=== PATIENT | female | born 1930 | race Caucasian/White ===

== ENCOUNTER 2016-12-28 07:36 | Inpatient (IN) | payer OTHER ==
[~2016-12-28] VITALS: Ht 167.6 cm; Wt 76.1 kg
[2016-12-28] VITALS (8 sets, daily range): BP systolic 133–157; BP diastolic 66–132
--- NOTE | ~2016-12-28 | HC ---
[facility] [place] [address] [place] [address] CONSULTATION Name: BARRONQUINCY Room #: 311-P ADM IN M.R.#: [id number] Admission: 12/28/16 Attend Phys: Enoc Bashir MD Discharge: Date of : 30 Report #: [id number] THIS REPORT FOR: //name// CC: WILFRIDO physician/PCP Enoc Bashir DATE OF SERVICE: 12/29/2016 HISTORY OF PRESENT ILLNESS: The patient is an 86-year-old female who was brought to the Emergency Room with slurred speech and left-sided weakness. At that time, her blood sugar was 320. Despite this, the patient was still able to interact with her family; however, because of a significant dementia, the patient was not able to provide any history. Initially, the patient was on the floor, but was then transferred to the Intensive Care Unit. The patient is septic, possibly from left lower extremity cellulitis. As stated above, the patient is unable to provide any history. She is very pleasant, but demented. She has no movement in the left arm or leg. Initial imaging studies with CT head demonstrates moderate diffuse atrophy, but no acute intracranial process. CT angiogram demonstrates minor narrowing of the proximal left ICA, the pe[place] of [place] demonstrates no significant stenosis or aneurysm. A CT perfusion study could not be performed due to technical problems. Since admission, there has been no improvement in the left arm and leg weakness. PAST MEDICAL HISTORY: Dementia. PAST SURGICAL HISTORY: Unknown. MEDICATIONS: Potassium, Exelon, trazodone, Depakote, Risperdal. ALLERGIES: None. PHYSICAL EXAMINATION: VITAL SIGNS: Temperature 36.4, pulse rate 79, respiratory rate 24, blood pressure 119/56, bedside pulse oximetry 93% on room air. LABORATORY DATA: White blood cell count 20.6, hemoglobin 12, hematocrit 35, MCV 95.5, platelet count 167,000. INR 1. Urinalysis 1+ protein, trace ketones, 3+ blood, few bacteria. Chemistry: Sodium 144, potassium 3.1, chloride 107, carbon dioxide 29, BUN 25, creatinine 1, glucose 149. Hemoglobin A1c pending. Lactic acid 1.9, calcium 7.6, total bilirubin 0.5, direct bilirubin 0.1, AST 338, ALT 73, alkaline phosphatase 59, total protein 5.6, albumin 2. Triglycerides 200, cholesterol 194, LDL cholesterol 126, HDL cholesterol 28, amylase 68, lipase 60. Procalcitonin 0.85. [address] [address] CONSULTATION Name: KNOX, VIRGINIA Room #: 311-P ADM IN R.#: [id number] Admission: 12/28/16 Attend Phys: Enoc Bashir MD Discharge: Date of : 30 Report #: [id number] NEUROLOGIC: The patient is not oriented to place or time. Motor exam demonstrates a dense left hemiparesis. Reflexes are symmetrical throughout. The plantar responses are mute bilaterally. There is no evidence of dysmetria in the right upper extremity. Gait cannot be tested. IMPRESSION: This patient appears to have had a stroke. She is scheduled for an MRI head hopefully she will be able to lie still for this. The patient has dementia and is on Exelon, we will need to find out the dose of the Exelon patch and get the patient back on this medication as soon as possible, so she does not have further cognitive decline. Once the stroke is confirmed, the patient will need to be in antiplatelet therapy. She will also need physical therapy, occupational therapy and speech therapy. She will either need a carotid ultrasound or MR angiography of the head and neck. We will also order a B12 and TSH to make sure these have been done to complete the dementia workup. I thank you for your kind referral of the patient and will continue to follow her with you. <ELECTRONICALLY SIGNED> By: Brie Junior DO 12/30/16 1556 1116 2201 Brie Junior DO /nt
--- NOTE | ~2016-12-28 | HC ---
[facility] [place] [address] [place] [address] CONSULTATION Name: BARRONQUINCY Room #: 311-P [facility] IN M.R.#: [id number] Admission: 12/28/16 Attend Phys: Enoc Bashir MD Discharge: 01/05/17 Date of : 30 Report #: [id number] THIS REPORT FOR: //name// CC: WILFRIDO physician/PCP Enoc Bashir DATE OF SERVICE: 12/30/2016 HISTORY OF PRESENT ILLNESS: The patient is an 86-year-old white female with severe dementia who lives in the Memory Care Alzheimer's Unit at [facility]. She was admitted with slurred speech, left-sided weakness, blood sugar 320. She was noted to have sepsis, question left leg cellulitis. With the significant left arm and leg weakness, neurology saw her. MRI was negative and there was a question of either a clinical CVA without radiographic findings versus possible brachial plexopathy as the left upper extremity weakness appears to be greater than the left lower extremity. Neurology indicated that she could be a candidate for an EMG in 3 weeks to rule out a brachial plexopathy. We are seeing her in rehabilitation medicine consultation. PAST MEDICAL HISTORY: Includes dementia, which is severe and hypertension. MEDICATIONS: Please see the full medication listing. SOCIAL HISTORY: As noted above. REVIEW OF SYSTEMS: Unobtainable. PHYSICAL EXAMINATION: GENERAL: An 86-year-old white female in no obvious distress. She is alert, pleasant, poor historian, could not tell me the place nor the year. VITAL SIGNS: Last recorded temperature 98.5, pulse 97, respirations 16, blood pressure 175/84. EXTREMITIES: She has dense left upper extremity plegia without volitional movement. Left lower extremity, she was able to wiggle her toes and appeared to have a little more movement proximally although it is difficult to get her to follow commands. She has functional range of motion and strength of the right upper and right lower extremity probably at a grade 4- to 3+/5. DTRs appeared decreased in the left. Functionally, she has been max assist with basic transfers. ASSESSMENT: An 86-year-old white female with the following problem list: 1. Left-sided weakness, upper extremity greater than lower extremity, clinical CVA versus brachial plexopathy per neurology. 2. Sepsis, possibly from left leg cellulitis. 3. Lactic acidosis, which improved. 4. Hypertension. [facility] [address] [place] [address] CONSULTATION Name: LAKELAND, VIRGINIA Room #: 311-P [facility] IN M.R.#: [id number] Admission: 12/28/16 Attend Phys: Enoc Bashir MD Discharge: 01/05/17 Date of : 30 Report #: [id number] 5. Premorbid severe dementia. PLAN: The patient unfortunately does not meet criteria for an acute in-hospital inpatient rehabilitation stay. With her severe Alzheimer's and living at the memory care unit at [facility], would consider a correction facility stay at [facility] or a similar setting per case management. Thank you for asking us to assist in this patient's care. <ELECTRONICALLY SIGNED> By: Deep Morgan MD 01/06/17 1518 1623 2224 Deep Morgan MD /nt
--- NOTE | ~2016-12-28 | S ---
[facility] [address] [place] [address] SURGICAL PATH RPT PROCEDURE Name: QUINCY MART Room #: 311-P ADM IN M.R.#: [id number] Admission: 12/28/16 Date of : 30 Discharge: Report #: [id number] Path Case #: [id number] PATHOLOGY REPORT COLLECTION DATE: 12/29/2016 RECEIVED DATE: 12/29/2016 SUBMITTING PHYS: Dr. Enoc Bashir OTHER PHYS: SPECIMEN(S) RECEIVED: A.Peripheral smear * * * * * * * * * * * * FINAL DIAGNOSIS: Peripheral blood smear: - Mild leukocytosis/neutrophilia. (see comment) COMMENT: Overall, the peripheral blood has mild leukocytosis/neutrophilia. The hemoglobin and platelet counts are within the normal reference ranges. The etiology of the findings is unclear based entirely on slide review. Potential causes of leukocytosis and neutrophilia include infections, drug reactions, smoking, and primary bone marrow disorders. Correlation with clinical history and additional laboratory data is recommended. (CLW:; d/t: 12/29/16) PATHOLOGIST: Erin Moon M.D. REPORT ELECTRONICALLY SIGNED BY: Erin Moon M.D. DATE/TIME: 12/29/2016 23:17 * * * * * * * * * * * * MICROSCOPIC DESCRIPTION: CBC Data (12/29/16): WBC 20,600 /uL, RBC 3.66, hemoglobin 12.0 g/dL, hematocrit 35.0%, MCV 95.5 fL, MCH 32.7 pg, MCHC 34.2 g/dL, RDW 15.3%. Platelet count 167,000 /uL. Manual white blood cell differential: segs 78%, bands 1%, lymphs 12%, monos 8%, and eos 1%. Peripheral Blood Smear: Cytomorphological examination of the Prince's stained peripheral blood smear confirms the provided data. Red blood cells are normocytic and are without significant anisopoikilocytosis. White blood cells are mildly increased in number. They are predominantly segmented neutrophils and are without significant dyspoiesis or significant left shift. Lymphocytes are predominantly small, round, and mature appearing with condensed chromatin and scant cytoplasm with admixed large granular lymphocytes. Monocytes are mature. Platelets are adequate in number and mainly normal in morphology with [facility] [address] [place] [address] SURGICAL PATH RPT PROCEDURE Name: MCHENRY, VIRGINIA Room #: [facility]-P ADM IN M.R.#: [id number] Admission: 12/28/16 Date of : 30 Discharge: Report #: [id number] Path Case #: [id number] rare larger platelets noted. CLINICAL HISTORY: 86 year-old woman with leukocytosis. Morphologic review of the peripheral blood smear is requested by the patient's physician. INITIAL CPT CODE(S): A; [place] Professional services performed by [facility] at [facility] [address] [place] [address] Technical services performed by [facility] at [address] [place] [address], [address], [place] [address]. [facility] [address] [place] [address] PHONE: [phone] DIRECTOR: Ilya Granados M.D. * * * END OF REPORT * * *
--- NOTE | ~2016-12-28 | 2DMMODE ---
[facility] [address] [place] [address] 2 D/M-MODE ECHOCARDIOGRAM Name: QUINCY MART Room #: 244-P ADM IN M.R.#: [id number] Admission: 12/28/16 Attend Phys: Enoc Bashir, Discharge: Date of : 30 Date of Service: 12/29/16 1113 Report #: [id number] THIS REPORT FOR: //name// APPROVED REPORT Study performed: 12/29/2016 08:36:24 EXAM: Comprehensive 2D, Doppler, and color-flow Echocardiogram Patient Location: Bedside Room #: 244 Status: routine Other Information Study Quality: Adequate Indications CVA/TIA Hx: dementia, HTN, HLP Echo Enhancing Agent Indication: Rule out Shunt Agent(s) / Amount(s) Used: Agitated Saline 6 cc 2D Dimensions RVDd: 37.10 mm LVEF(%): 58.85 (>50%) IVSd: 9.97 (7-11mm) LVOT Diam: 18.66 (18-24mm) LVDd: 42.37 mm PWd: 8.73 (7-11mm) Ascending Ao: 30.90 (22-36mm) LVDs: 29.29 (25-40mm) Aortic Root: 28.84 mm Nazario's LVEF: 58.85 % Volumes Left Atrial Volume (Systole) Single Plane 4CH: 34.27 mL Single Plane 2CH: 29.13 mL LA ESV Index: 19.00 mL/m2 Aortic Valve AoV Peak Matty.: 1.53 m/s AO Peak Gr.: 9.31 mmHg LVOT Max P.62 mmHg LVOT Max V: 0.95 m/s THELMA Vmax: 1.71 cm2 Mitral Valve E/A Ratio: 0.8 [facility] [place] [address] 2 D/M-MODE ECHOCARDIOGRAM Name: OGDENSBURG, VIRGINIA Room #: 244-P ADM IN M.R.#: [id number] Admission: 12/28/16 Attend Phys: Enoc Bashir, Discharge: Date of : 30 Date of Service: 12/29/16 1113 Report #: [id number] MV Decel. Time: 221.69 ms MV E Max Matty.: 0.97 m/s MV A Matty.: 1.25 m/s MV PHT: 64.29 ms IVRT: 72.66 ms Pulmonary Valve PV Peak Matty.: 1.14 m/s PV Peak Gr.: 5.23 mmHg Pulmonary Vein P Vein S: 0.41 m/s P Vein A: 0.39 m/s P Vein D: 0.63 m/s P Vein A Dur.: 124.6 msec P Vein S/D Ratio: 0.65 Tricuspid Valve TR Peak Matty.: 2.61 m/s RAP Estimate: 5.00 mmHg TR Peak Gr.: 27.22 mmHg PA Pressure: 32.00 mmHg Left Ventricle The left ventricle is normal size. There is normal LV segmental wall motion. There is normal left ventricular wall thickness. Left ventricular systolic function is normal. LVEF is 55-60%. Grade I - abnormal relaxation pattern. Right Ventricle The right ventricle is normal size. The right ventricular systolic function is normal. Atria The left atrium size is normal. Injection of bubbles documented no interatrial shunt. The right atrium size is normal. Aortic Valve Aortic valve is mildly calcified. No aortic regurgitation is present. There is no aortic valvular stenosis. Mitral Valve Mitral valve leaflets are mildly calcified. Mild mitral regurgitation. No evidence of mitral valve stenosis. Tricuspid Valve The tricuspid valve is normal in structure. There is mild tricuspid regurgitation. The right atrial pressure is estimated at 5 mmHg. There is mild pulmonary hypertension with an estimated PAP of 32mmHg. [facility] [address] [place] [address] 2 D/M-MODE ECHOCARDIOGRAM Name: OGDENSBURG, VIRGINIA Room #: 244-P [facility] IN M.R.#: [id number] Admission: 12/28/16 Attend Phys: Enoc Bashir, Discharge: Date of : 30 Date of Service: 12/29/16 1113 Report #: [id number] Pulmonic Valve Pulmonic valve is not well visualized. Trace pulmonic regurgitation. Great Vessels The aortic root is normal in size. The ascending aorta is normal in size. IVC is normal in size and collapses >50% with inspiration. Pericardium There is no pericardial effusion. <Conclusion> The left ventricle is normal size. Left ventricular systolic function is normal. Grade I - abnormal relaxation pattern. The right ventricle is normal size. The left atrium size is normal. Aortic valve is mildly calcified. There is no aortic valvular stenosis. Mitral valve leaflets are mildly calcified. Mild mitral regurgitation. There is mild tricuspid regurgitation. The right atrial pressure is estimated at 5 mmHg. There is mild pulmonary hypertension with an estimated PAP of 32mmHg. <ELECTRONICALLY SIGNED> By: Korey Leahy MD 12/29/16 1113 1113 1113 Korey Leahy MD /INF
--- NOTE | ~2016-12-28 | HC ---
[facility] [place] [place] [address] CONSULTATION Name: QUINCY MART Room #: 311-P ADM IN M.R.#: [id number] Admission: 12/28/16 Attend Phys: Enoc Bashir MD Discharge: Date of : 30 Report #: [id number] THIS REPORT FOR: //name// CC: WILFRIDO physician/PCP Enoc Bashir INFECTIOUS DISEASE CONSULTATION REASON FOR CONSULTATION: I was asked to evaluate the patient concerning leukocytosis in the setting of stroke. HISTORY OF PRESENT ILLNESS: The patient is an 86-year-old with underlying dementia and hypertension, who presents from the [facility] with left-sided weakness and slurred speech. No fever, chills or sweats. Hemodynamically, has been stable. She does not complain of anything other than left neck and shoulder discomfort. Duration of this is not clear. Trauma is felt less likely by her history. CT scan of the head and neck were unremarkable, other than atrophy. MRI scan is pending. She spent a night in the intensive care unit and hemodynamically has been stable. Oxygen saturation on room air was adequate. There has been no cough or sputum production. There is no nausea, vomiting or diarrhea. Her urinalysis was unremarkable. The patient has had no diarrhea. Her initial white count was 24,000. She continues to have left-sided weakness, greatest in the arm. ALLERGIES: None. MEDICATIONS: As noted on the MAR. Now on vancomycin and Zosyn. Other medications as noted on her MAR, on no corticosteroids. Past medical history, family history and social history not known, other than her hypertension. REVIEW OF SYSTEMS: The patient unable to give any details. PHYSICAL EXAMINATION: VITAL SIGNS: Afebrile and hemodynamically stable. GENERAL: She was alert and cooperative and pleasant, in no acute distress. She was disoriented. SKIN: Erythema and edema involving the left trapezius and shoulder region. She had pain on palpation to this region. No fluctuance. No axillary adenopathy. She had reasonable range of motion in her shoulder. MOUTH: Dry. NECK: Supple. No parotid tenderness. LUNGS: Clear. HEART: Regular, without murmur. ABDOMEN: Soft. Mild tenderness in the left lower quadrant. No guarding or [facility] [address] [place] [address] CONSULTATION Name: GERING, VIRGINIA Room #: [facility]- ADM IN M.R.#: [id number] Admission: 12/28/16 Attend Phys: Enoc Bashir MD Discharge: Date of : 30 Report #: [id number]. EXTREMITIES: Unremarkable. NEUROLOGICAL EXAMINATION: Weakness to the left arm. Mild left-sided facial weakness. Indwelling Daigle catheter. LABORATORY DATA: Sodium 144, potassium 3.1, bicarbonate 29 and creatinine 1. Troponin 0.09. Procalcitonin 0.8. Sedimentation rate 10. Hemoglobin 12, WBC 20.6 with 78% segs, 1% band and platelet count 167,000. Lactate 1.9. CT of the head, atrophy. Chest x-ray, basilar atelectasis. CT of the neck unremarkable. Blood cultures are pending. Urinalysis unremarkable. IMPRESSION AND PLAN: An 86-year-old with stroke, left-sided hemiparesis and left upper arm and shoulder area erythema and tenderness. Persistent leukocytosis. Sources to consider would include left upper chest soft tissue infection, endocarditis with embolic stroke versus intra-abdominal infection. Other consideration would be vasculitis or hematologic malignancy. Recommend checking liver function tests, CT scan of the abdomen and pelvis. Continue her antibiotics while awaiting blood cultures, await echocardiogram and check peripheral blood smear. <ELECTRONICALLY SIGNED> By: Yvan Grewal MD 12/30/16 1558 0909 1455 Yvan Grewal MD /nt
--- NOTE | ~2016-12-28 | EKG ---
[address] [address] ELECTROCARDIOGRAM REPORT Name: QUINCY MART Room #: 244-P ADM IN M.R.#: [id number] Admission: 12/28/16 Attend Phys: Enoc Bashir MD Discharge: Date of : 30 Report #: [id number] THIS REPORT FOR: //name// [facility] ED Test Date: 2016-12-28 Test Time: 07:32:42 Pat Name: QUINCY MART Department: Room: [facility] Gender: F Care Analyst: Ange Mina : 1930 Requested By: Eliud Mcdonald Order Number: [id number] MD: Ashwin Becker Measurements Intervals [place] Rate: 91 P: 68 NJ: 220 QRS: 69 QRSD: 158 T: -51 QT: 423 QTc: 521 Interpretive Statements Sinus rhythm Prolonged [place] interval Right bundle branch block No previous ECG available for comparison Electronically Signed On 12-28-2016 20:24:06 CDT by Ashwin Becker [email or web address] <ELECTRONICALLY SIGNED> By: Ashwin Becker MD 12/28/162023 1 1 Ashwin Becker MD /JIM
[2016-12-28 08:19] LABS: HEMATOCRIT 39.2 % (37.0-47.0); HEMOGLOBIN 13.4 gm/dL (12.0-15.0); MANUAL DIFF YES; MCH 32.2 pg (26.0-34.0); MCHC 34.3 g/dL (28.0-37.0); MCV 93.9 fL (80.0-100.0); PLATELET COUNT 194 thou/uL (150-400); RBC 4.17 mil/uL (4.20-5.00); RDW 14.6 % (10.5-14.5); WBC 24.5 thou/uL (4.0-11.0)
[2016-12-28 08:30] LABS: URINE BILIRUBIN NEGATIVE (Negative); URINE BLOOD 3+ (Negative); URINE COLOR YELLOW; URINE GLUCOSE-RANDOM* TRACE (Negative); URINE KETONES TRACE (Negative); URINE NITRITE NEGATIVE (Negative); URINE PROTEIN (DIPSTICK) 1+ (Negative); URINE UROBILINOGEN 0.2 E.U./dl (0.2-1.0)
[2016-12-28 08:37] LABS: APTT 24.7 Seconds (24.5-32.8); INR 1.1
[2016-12-28 08:38] LABS: CREATININE 1.7 mg/dL (0.6-1.0); TROPONIN-I 0.08 ng/mL (<0.04-0.07)
[2016-12-28 08:40] LABS: POTASSIUM 2.8 mmol/L (3.5-5.1)
[2016-12-28 09:20] LABS: ABSOLUTE NEUTROPHILS 20.3 thou/uL (1.4-8.2); TOTAL CELL COUNT 100
[2016-12-28 09:21] LABS: ANISOCYTOSIS SLIGHT
[2016-12-28 09:42] LABS: CASTS None Seen /LPF (None Seen); CRYSTALS None Seen /LPF (None Seen); SQUAMOUS 0-3 Few /LPF (0-3)
[2016-12-28 09:43] LABS: URINE WBC 0-5 Rare /HPF (0-5)
[2016-12-28 09:44] LABS: BACTERIA 1-9 Few /HPF (None Seen); URINE RBC 0-2 Rare /HPF (0-2)
[2016-12-28] MEDS ORDERED: POTASSIUM20 PO (10:41)
[2016-12-28] MEDS ORDERED: KLOR-CON 1010 MEQ PO (10:41)
[2016-12-28] MEDS ORDERED: TRAZODONE HCL50 MG PO ×2 (10:42→10:47)
[2016-12-28] MEDS ORDERED: EXELON1 EAC1 TD (10:42)
[2016-12-28] MEDS ORDERED: RISPERDAL0.5 MG PO (10:44)
[2016-12-28] MEDS ORDERED: DEPAKOTE 250MG250 M1 PO (10:44)
[2016-12-28] MEDS ORDERED: BISACODYL SUPP10 MG RECTAL (10:45)
[2016-12-28] MEDS ORDERED: DULCOLAX5 MG PO (10:45)
[2016-12-28] MEDS ORDERED: OLANZAPINE ODT5 MG DISSOLVE (10:46)
[2016-12-28] MEDS ORDERED: ATIVAN0.5 MG PO (10:46)
[2016-12-28] MEDS ORDERED: LEVOTHYROXIN0.125 M1 PO (10:48)
[2016-12-28] MEDS ORDERED: LASIX 20 MG TAB20 MG PO (10:48)
[2016-12-28] MEDS ORDERED: NORVASC2.5 MG PO (10:48)
[2016-12-28] MEDS ORDERED: HYDROCHLOROTHIA25 M2 PO (10:48)
[2016-12-28] MEDS ORDERED: OMEPRAZOLE40 MG PO (10:49)
[2016-12-28] MEDS ORDERED: TOPROL XL100 MG PO (10:49)
[2016-12-28 13:11] LABS: ALBUMIN 2.4 g/dL (3.4-5.0); TOTAL BILIRUBIN 0.3 mg/dL (<0.1-1.0); TOTAL PROTEIN 6.3 g/dL (6.4-8.2)
[2016-12-28 17:25] LABS: ABG SAMPLE TYPE ARTERIAL; BE(vivo) 2.9 mmol/L (-2 to +3); HCO3 24.5 mmol/L (22.0-26.0); LACTATE 5.28 mmol/L (0.5-2.0); O2(CT) 19.7 mL/dL (15.0-23.0); O2Hb 91.7 % (92.0-98.0); PCO2 29.4 mmHg (35.0-45.0); STICK SITE R.RADIAL; pH 7.538 (7.360-7.450); sO2 95.1 % (92.0-98.0); tCO2 25.4 mmol/L (24.0-30.0)
[2016-12-28 20:14] LABS: ABG SAMPLE TYPE VENOUS; BE(vivo) 5.4 mmol/L (-2 to +3); HCO3 29.2 mmol/L (22.0-26.0); LACTATE 4.41 mmol/L (0.5-2.0); PCO2 VENOUS 39.6 mmHg (41.0-51.0); PO2 VENOUS 33.4 mmHg (35.0-45.0); STICK SITE LINE; sO2 VENOUS 69.1 % (65.0-85.0); tCO2 30.4 mmol/L (24.0-30.0)
[2016-12-28 20:17] LABS: HEMATOCRIT 40.1 % (37.0-47.0); HEMOGLOBIN 13.7 gm/dL (12.0-15.0); MCH 32.2 pg (26.0-34.0); MCHC 34.1 g/dL (28.0-37.0); MCV 94.4 fL (80.0-100.0); PLATELET COUNT 190 thou/uL (150-400); RBC 4.24 mil/uL (4.20-5.00); RDW 15.3 % (10.5-14.5); WBC 21.4 thou/uL (4.0-11.0)
[2016-12-28 20:19] LABS: MANUAL DIFF YES
[2016-12-28 20:35] LABS: ALBUMIN 2.2 g/dL (3.4-5.0); APTT 25.6 Seconds (24.5-32.8); CALCIUM 7.9 mg/dL (8.5-10.1); CREATININE 1.3 mg/dL (0.6-1.0); FIBRINOGEN 354.8 mg/dL (210-360); PROTIME 10.7 Seconds (9.3-11.4); TOTAL BILIRUBIN 0.6 mg/dL (<0.1-1.0); TOTAL PROTEIN 6.1 g/dL (6.4-8.2); TROPONIN-I 0.11 ng/mL (<0.04-0.07)
[2016-12-28 20:45] LABS: POTASSIUM 2.8 mmol/L (3.5-5.1)
[2016-12-28 21:37] LABS: ABG SAMPLE TYPE VENOUS; BE(vivo) 5.8 mmol/L (-2 to +3); HCO3 30.2 mmol/L (22.0-26.0); LACTATE 3.47 mmol/L (0.5-2.0); O2(CT) 12.2 mL/dL (15.0-23.0); PCO2 VENOUS 43.2 mmHg (41.0-51.0); PO2 VENOUS 32.7 mmHg (35.0-45.0); sO2 VENOUS 66.2 % (65.0-85.0); tCO2 31.6 mmol/L (24.0-30.0)
[2016-12-28 21:38] LABS: ABG COMMENT NO COMPLICATIONS.; STICK SITE PICC
[2016-12-28 21:53] LABS: ANISOCYTOSIS SLIGHT; TOTAL CELL COUNT 100
[2016-12-28 23:06] LABS: ABG SAMPLE TYPE VENOUS; HCO3 24.2 mmol/L (22.0-26.0); LACTATE 2.53 mmol/L (0.5-2.0); O2(CT) 11.6 mL/dL (15.0-23.0); O2Hb VENOUS 70.1 (65.0-85.0); PCO2 VENOUS 33.9 mmHg (41.0-51.0); PO2 VENOUS 38.2 mmHg (35.0-45.0); STICK SITE LINE; sO2 VENOUS 76.7 % (65.0-85.0); tCO2 25.3 mmol/L (24.0-30.0)
[2016-12-29] VITALS (10 sets, daily range): BP systolic 98–152; BP diastolic 54–81
[2016-12-29 00:18] LABS: BE(vivo) 5.9 mmol/L (-2 to +3); HCO3 29.7 mmol/L (22.0-26.0); O2(CT) 13.1 mL/dL (15.0-23.0); O2Hb VENOUS 73.5 (65.0-85.0); PCO2 VENOUS 40.1 mmHg (41.0-51.0); PO2 VENOUS 38.8 mmHg (35.0-45.0); sO2 VENOUS 77.6 % (65.0-85.0); tCO2 30.9 mmol/L (24.0-30.0)
[2016-12-29 00:19] LABS: ABG SAMPLE TYPE VENOUS; LACTATE 3.91 mmol/L (0.5-2.0); STICK SITE LINE
[2016-12-29 00:31] LABS: CALCIUM 7.6 mg/dL (8.5-10.1); CREATININE 1.3 mg/dL (0.6-1.0); POTASSIUM 3.4 mmol/L (3.5-5.1); TROPONIN-I 0.09 ng/mL (<0.04-0.07)
[2016-12-29 02:12] LABS: BE(vivo) -1.3 mmol/L (-2 to +3); HCO3 21.8 mmol/L (22.0-26.0); LACTATE 2.88 mmol/L (0.5-2.0); O2(CT) 11.3 mL/dL (15.0-23.0); O2Hb VENOUS 70.1 (65.0-85.0); PCO2 VENOUS 31.5 mmHg (41.0-51.0); PO2 VENOUS 38.8 mmHg (35.0-45.0); sO2 VENOUS 77.1 % (65.0-85.0); tCO2 22.8 mmol/L (24.0-30.0)
[2016-12-29 02:13] LABS: ABG SAMPLE TYPE VENOUS; STICK SITE LINE
[2016-12-29 03:44] LABS: BE(vivo) 1.9 mmol/L (-2 to +3); HCO3 25.1 mmol/L (22.0-26.0); O2(CT) 12.9 mL/dL (15.0-23.0); O2Hb VENOUS 70.4 (65.0-85.0); PCO2 VENOUS 34.8 mmHg (41.0-51.0); PO2 VENOUS 38.7 mmHg (35.0-45.0); sO2 VENOUS 77.5 % (65.0-85.0); tCO2 26.2 mmol/L (24.0-30.0)
[2016-12-29 03:45] LABS: ABG SAMPLE TYPE VENOUS; STICK SITE LINE
[2016-12-29 06:48] LABS: ANION GAP 8 mmol/L (7-16); BUN 25 mg/dL (7-18); CALCIUM 7.6 mg/dL (8.5-10.1); CHLORIDE 107 mmol/L (98-107); CHOLESTEROL 194 mg/dL (<200); CO2 29 mmol/L (21-32); GLUCOSE 175 mg/dL (74-106); HDL CHOLESTEROL 28 mg/dL (>40); LDL CHOLESTEROL 126 mg/dL (<100); POTASSIUM 3.1 mmol/L (3.5-5.1); SODIUM 144 mmol/L (136-145); TC:HDL 6.9 Ratio (Not establshd); TRIGLYCERIDE 200 mg/dL (<150); TROPONIN-I 0.08 ng/mL (<0.04-0.07); VLDL 40 mg/dL (<40)
[2016-12-29 07:19] LABS: MCH 32.7 pg (26.0-34.0); MCHC 34.2 g/dL (28.0-37.0); MCV 95.5 fL (80.0-100.0); PLATELET COUNT 167 thou/uL (150-400); RBC 3.66 mil/uL (4.20-5.00); RDW 15.3 % (10.5-14.5); WBC 20.6 thou/uL (4.0-11.0)
[2016-12-29 07:20] LABS: MANUAL DIFF YES
[2016-12-29 08:42] LABS: ABSOLUTE NEUTROPHILS 16.3 thou/uL (1.4-8.2); PLATELET ESTIMATE NORMAL; TOTAL CELL COUNT 100
[2016-12-29 09:48] LABS: DIRECT BILIRUBIN 0.1 mg/dL (<0.1-0.3); TOTAL BILIRUBIN 0.5 mg/dL (<0.1-1.0); TOTAL PROTEIN 5.6 g/dL (6.4-8.2)
[2016-12-29 12:41] LABS: TSH 9.654 uIU/mL (0.358-3.740)
[2016-12-30 05:00] VITALS: BP 174/84
[2016-12-30 05:10] LABS: GLYCOHEMOGLOBIN (HGB A1C) 7.2 % (4.8-5.6)
[2016-12-30 06:46] LABS: ABSOLUTE NEUTROPHILS 14.2 thou/uL (1.4-8.2); BASOPHILS 0.5 % (0.0-2.0); EOSINOPHILS 0.7 % (0.0-3.0); HEMATOCRIT 31.7 % (37.0-47.0); HEMOGLOBIN 10.8 gm/dL (12.0-15.0); LYMPHOCYTES 10.2 % (24.0-44.0); MCH 32.7 pg (26.0-34.0); MCHC 34.1 g/dL (28.0-37.0); MCV 95.8 fL (80.0-100.0); MONOCYTES 9.2 % (1.0-8.0); PLATELET COUNT 173 thou/uL (150-400); POLYS 79.4 % (36.0-66.0); RBC 3.31 mil/uL (4.20-5.00); RDW 15.8 % (10.5-14.5); WBC 17.9 thou/uL (4.0-11.0)
[2016-12-30 06:47] LABS: MANUAL DIFF NO
[2016-12-30 07:16] VITALS: BP 153/73
[2016-12-30 15:56] VITALS: BP 175/84
[2016-12-30 19:51] VITALS: BP 168/80
[2016-12-31 01:19] LABS: HEMATOCRIT 30.3 % (37.0-47.0); HEMOGLOBIN 10.5 gm/dL (12.0-15.0); MCH 32.8 pg (26.0-34.0); MCHC 34.8 g/dL (28.0-37.0); MCV 94.2 fL (80.0-100.0); RBC 3.21 mil/uL (4.20-5.00); RDW 15.4 % (10.5-14.5); WBC 18.3 thou/uL (4.0-11.0)
[2016-12-31 01:30] LABS: CALCIUM 7.8 mg/dL (8.5-10.1); CREATININE 0.9 mg/dL (0.6-1.0)
[2016-12-31 01:36] LABS: POTASSIUM 3.8 mmol/L (3.5-5.1)
[2016-12-31 04:22] VITALS: BP 153/76
[2016-12-31 07:45] VITALS: BP 149/64
[2016-12-31 16:42] VITALS: BP 161/71
[2016-12-31 19:53] VITALS: BP 163/74
[2017-01-01 03:53] VITALS: BP 167/85
[2017-01-01 05:59] LABS: HEMATOCRIT 30.5 % (37.0-47.0); HEMOGLOBIN 10.5 gm/dL (12.0-15.0); MCH 32.6 pg (26.0-34.0); MCHC 34.4 g/dL (28.0-37.0); MCV 94.6 fL (80.0-100.0); RBC 3.22 mil/uL (4.20-5.00); RDW 15.1 % (10.5-14.5)
[2017-01-01 06:22] LABS: CALCIUM 7.9 mg/dL (8.5-10.1); CREATININE 0.8 mg/dL (0.6-1.0); POTASSIUM 3.2 mmol/L (3.5-5.1)
[2017-01-01 06:57] VITALS: BP 157/60
[2017-01-01 16:22] VITALS: BP 177/69
[2017-01-01 16:30] VITALS: BP 157/66
[2017-01-01 20:30] VITALS: BP 173/87
[2017-01-01 22:40] VITALS: BP 135/76
[2017-01-02 04:00] VITALS: BP 165/77
[2017-01-02 04:35] LABS: HEMATOCRIT 32.8 % (37.0-47.0); HEMOGLOBIN 11.2 gm/dL (12.0-15.0); MCH 32.7 pg (26.0-34.0); MCHC 34.3 g/dL (28.0-37.0); MCV 95.6 fL (80.0-100.0); RBC 3.43 mil/uL (4.20-5.00); RDW 15.3 % (10.5-14.5); WBC 18.7 thou/uL (4.0-11.0)
[2017-01-02 05:01] LABS: CALCIUM 8.3 mg/dL (8.5-10.1); CREATININE 0.8 mg/dL (0.6-1.0); POTASSIUM 3.6 mmol/L (3.5-5.1)
[2017-01-02 07:20] VITALS: BP 166/85
[2017-01-02 15:50] VITALS: BP 137/71
[2017-01-02 19:19] VITALS: BP 153/82
[2017-01-03 04:29] VITALS: BP 175/62
[2017-01-03 05:39] LABS: HEMOGLOBIN 10.9 gm/dL (12.0-15.0); MCH 32.8 pg (26.0-34.0); MCV 96.3 fL (80.0-100.0); RBC 3.33 mil/uL (4.20-5.00); RDW 15.6 % (10.5-14.5); WBC 20.8 thou/uL (4.0-11.0)
[2017-01-03 05:55] LABS: CALCIUM 8.3 mg/dL (8.5-10.1); CREATININE 0.8 mg/dL (0.6-1.0); POTASSIUM 3.2 mmol/L (3.5-5.1)
[2017-01-03 07:18] VITALS: BP 187/97
[2017-01-03 15:58] VITALS: BP 153/74
[2017-01-03 20:00] VITALS: BP 189/76
[2017-01-04 04:00] VITALS: BP 178/72
[2017-01-04 06:26] LABS: HEMATOCRIT 32.3 % (37.0-47.0); HEMOGLOBIN 11.2 gm/dL (12.0-15.0); MCH 33.2 pg (26.0-34.0); MCHC 34.7 g/dL (28.0-37.0); MCV 95.7 fL (80.0-100.0); PLATELET COUNT 349 thou/uL (150-400); RBC 3.37 mil/uL (4.20-5.00); RDW 15.5 % (10.5-14.5); WBC 19.1 thou/uL (4.0-11.0)
[2017-01-04 06:28] LABS: MANUAL DIFF YES
[2017-01-04 07:20] VITALS: BP 163/77
[2017-01-04 07:48] LABS: METAMYELOCYTES 2 %; POLYCHROMASIA SLIGHT; TOTAL CELL COUNT 100
[2017-01-04 07:52] LABS: ANISOCYTOSIS 2+
[2017-01-04 16:15] VITALS: BP 155/72
[2017-01-04 20:00] VITALS: BP 160/76
[2017-01-05 04:00] VITALS: BP 154/75
[2017-01-05 09:39] LABS: HEMATOCRIT 32.3 % (37.0-47.0); HEMOGLOBIN 11.3 gm/dL (12.0-15.0); MCH 33.7 pg (26.0-34.0); MCHC 34.9 g/dL (28.0-37.0); MCV 96.6 fL (80.0-100.0); PLATELET COUNT 406 thou/uL (150-400); RBC 3.35 mil/uL (4.20-5.00); RDW 15.8 % (10.5-14.5); WBC 19.4 thou/uL (4.0-11.0)
[2017-01-05 09:44] LABS: MANUAL DIFF YES
[2017-01-05 10:09] LABS: ABSOLUTE NEUTROPHILS 17.1 thou/uL (1.4-8.2); ANISOCYTOSIS 1+; POLYCHROMASIA OCCASIONAL; TOTAL CELL COUNT 100
[2017-01-05 10:32] VITALS: BP 176/84
[2017-01-05] MEDS ORDERED: ASPIR 8181 MG PO (13:48)
[2017-01-05] MEDS ORDERED: ATORVASTATIN CA20 MG PO (13:49)
[2017-01-05] MEDS ORDERED: CEFUROXIME500 MG PO (15:45)
== END 2017-01-05 16:46 | DRG 871 ==
LOC: ER 07:36 → ICU 09:38 → EROBS 09:38 → 4W 09:38 → ICU 17:23 → 3N 12-29 12:35
PROVIDERS: Emergency Medicine; Hospitalist; Internal Medicine; Internal Medicine Infectious Disease; Psychiatry & Neurology Neurology; Specialist
DX: A41.9 Sepsis, unspecified organism (principal); I63.9 Cerebral infarction, unspecified; G81.94 Hemiplegia, unspecified affecting left nondominant side; J98.11 Atelectasis; I10 Essential (primary) hypertension; E03.9 Hypothyroidism, unspecified; G62.9 Polyneuropathy, unspecified; E78.5 Hyperlipidemia, unspecified; K21.9 Gastro-esophageal reflux disease without esophagitis; G30.9 Alzheimer's disease, unspecified; F02.80 Dementia in other diseases classified elsewhere, unspecified severity, without behavioral disturbance, psychotic disturbance, mood disturbance, and anxiety; Z79.899 Other long term (current) drug therapy; Z79.82 Long term (current) use of aspirin
CPT/HCPCS: 10078; 10096; 27000